=== PATIENT | male | born 1980 | race Caucasian/White ===

== ENCOUNTER 2024-10-26 11:06 | Outpatient (CLI) | payer OTHER, BC, SELFPAY | END 2024-10-26 11:07 | disposition home or self-care (01) | PROVIDERS: PCP Family Medicine; Visit Provider Family Medicine | DX: E78.00 Pure hypercholesterolemia, unspecified (principal); I10 Essential (primary) hypertension; R53.83 Other fatigue; I77.89 Other specified disorders of arteries and arterioles; Z12.5 Encounter for screening for malignant neoplasm of prostate | CPT/HCPCS: 80053; 80061; 84270; 84402; 84403; 84443; G0103 ==

== ENCOUNTER 2024-11-03 07:45 | Outpatient (CLI) | payer OTHER, BC, SELFPAY | END 2024-11-03 07:46 | disposition home or self-care (01) | LOC: RAD 07:46 | PROVIDERS: PCP Family Medicine; Visit Provider Family Medicine | DX: I77.89 Other specified disorders of arteries and arterioles (principal); I10 Essential (primary) hypertension | CPT/HCPCS: 93306 ==

== ENCOUNTER 2024-12-11 07:44 | Outpatient (CLI) | payer OTHER, BC, SELFPAY ==
--- NOTE | 2024-12-11 08:00 | CRLHL7_ITS ---
For Patients: As a result of the Century Cures Act, medical imaging exams and procedure reports are released immediately into your electronic medical record. You may view this report before your referring provider. If you have questions, please contact your health care provider. INDICATION: History of ascending aortic aneurysm. TECHNIQUE: CT chest without contrast. COMPARISON: None. FINDINGS: Lungs and pleura: No suspicious nodules or infiltrates. No effusion or pneumothorax. Small cyst/bullous lesion along the anterior aspect of left oblique fissure measuring 4.1 x 2.7 cm on sag[address] plane. Heart and vasculature: Heart size is normal. Thoracic aorta and pulmonary artery are normal in caliber. Ascending aorta measures 3.7-3.9 cm. No evidence of aneurysm. Lymph nodes/mediastinum: No mediastinal, hilar, or axillary adenopathy. Chest wall: No masses. Upper abdomen: No significant findings. Bones: Degenerative changes of the spine. IMPRESSION: 1. No evidence of ascending aortic aneurysm. 2. Incidental note of small cysts/bullous lesion along the anterior aspect of left oblique fissure. Please note that all CT scans at this facility use dose modulation, iterative reconstruction, and/or weight-based dosing when appropriate to reduce radiation dose to as low as reasonably achievable. Dictated by Sahil Tam MD @ 12/11/2024 11:05:13 AM (Electronically Signed)
== END 2024-12-11 07:45 | disposition home or self-care (01) ==
LOC: CT 07:45
PROVIDERS: PCP Family Medicine; Visit Provider Family Medicine
DX: I77.89 Other specified disorders of arteries and arterioles (principal); I10 Essential (primary) hypertension
CPT/HCPCS: 71250

== ENCOUNTER 2025-01-30 09:53 | Outpatient (CLI) | payer OTHER, BC, SELFPAY ==
--- NOTE | 2025-01-30 11:42 | P.ANES_ITS ---
Anesthesia Charges Start Date/Time Anesthesia Start Date: 01/30/25 Anesthesia Start Time: 11:03 Stop Date/Time Anesthesia Stop Date: 01/30/25 Anesthesia Stop Time: 11:40 Coding CPT Codes CPT Codes: JUAN LWR INTST NDSC NOS - 00117 ([id number]) P2 - PATIENT W/MILD SYST DISEASE, QK - HEDDLER 2-4 CNCRNT ANES PROC, QX - PRODUCTION PROOFREADER SVC W/ MD MED DIRECTION
--- NOTE | 2025-01-30 11:42 | W.ANESCHARGE ---
Anesthesia Charges Start Date/Time Anesthesia Start Date: 01/30/25 Anesthesia Start Time: 11:03 Stop Date/Time Anesthesia Stop Date: 01/30/25 Anesthesia Stop Time: 11:40 Coding CPT Codes CPT Codes: JUAN LWR INTST NDSC NOS - 92276 ([id number]) P2 - PATIENT W/MILD SYST DISEASE, QK - GROUND WATER PUMP INSTALLER 2-4 CNCRNT ANES PROC, QX - ROSE GRADER SVC W/ MD MED DIRECTION
--- NOTE | 2025-01-30 11:59 | P.ANES_ITS ---
Anesthesia Charges Start Date/Time Anesthesia Start Date: 01/30/25 Anesthesia Start Time: 11:03 Stop Date/Time Anesthesia Stop Date: 01/30/25 Anesthesia Stop Time: 11:40 Coding CPT Codes CPT Codes: UJAN LWR INTST NDSC NOS - 82977 ([id number]) QK - HEALTHCARE NETWORK CONSULTANT 2-4 CNCRNT JUAN PROC, QX - EQUIPMENT MECHANIC SPECIALIST SVC W/ MD MED DIRECTION, P2 - PATIENT W/MILD SYST DISEASE
--- NOTE | 2025-01-30 11:59 | W.ANESCHARGE ---
Anesthesia Charges Start Date/Time Anesthesia Start Date: 01/30/25 Anesthesia Start Time: 11:03 Stop Date/Time Anesthesia Stop Date: 01/30/25 Anesthesia Stop Time: 11:40 Coding CPT Codes CPT Codes: JUAN LWR INTST NDSC NOS - [id number] ([id number]) QK - UNARMED SECURITY OFFICER 2-4 CNCRNT JUAN PROC, QX - AUTO JOB ESTIMATOR SVC W/ MD MED DIRECTION, P2 - PATIENT W/MILD SYST DISEASE
== END 2025-01-30 09:54 | disposition home or self-care (01) ==
LOC: OP CLINIC 09:54
PROVIDERS: PCP Family Medicine; Visit Provider Internal Medicine
DX: Z12.11 Encounter for screening for malignant neoplasm of colon (principal); D12.5 Benign neoplasm of sigmoid colon
CPT/HCPCS: 00811; 00812; 45380; J2704

== ENCOUNTER 2025-02-19 09:11 | Outpatient (CLI) | payer BC, SELFPAY | END 2025-02-19 09:12 | disposition home or self-care (01) | LOC: NFLDREF 02-22 12:06 | PROVIDERS: PCP Family Medicine; Referring Provider Family Medicine; Visit Provider Family Medicine | DX: I10 Essential (primary) hypertension (principal) | CPT/HCPCS: 80053; 80061 ==